=== PATIENT | female | born 1985 ===

== ENCOUNTER 2020-07-10 05:55 | Inpatient (IN) | payer OTHER ==
[2020-07-10] MEDS ORDERED: LIDOCAINE HCL 1% PRESERVATIVE FREE - 30ML VIAL ONE (06:22)
[2020-07-10] MEDS ORDERED: DEXTROSE 5%-LACTATED RINGERS 1,000 ML IV SCH (06:45)
[2020-07-10] MEDS ORDERED: BISACODYL 10 MG SUPP.RECT RC PRN (06:46)
[2020-07-10] MEDS ORDERED: METHYLERGONOVINE MALEATE 0.2 MG/1 ML AMP IM PRN (06:46)
[2020-07-10] MEDS ORDERED: BENZOCAINE 28 GM HEMORRHOIDAL OINTMENT TP PRN (06:46)
[2020-07-10] MEDS ORDERED: WITCH HAZEL 50% (TUCKS) 40 PAD/JAR PAD TP PRN (06:46)
[2020-07-10] MEDS ORDERED: BENZOCAINE 20% 57 GM BOTTLE TP PRN (06:46)
[2020-07-10] MEDS ORDERED: oxyCODONE HCL 5 MG TABLET PO PRN (06:46)
[2020-07-10] MEDS ORDERED: OXYTOCIN 20 UNITS in 0.9% NS 20 UNIT/1,000 ML INFUS.BAG IV SCH (07:00)
[2020-07-10 08:03] LABS: BASO % 0.3 % (0-2.0); EOS % 0.5 % (0-4.5); HEMATOCRIT 38.1 % (32.4-45.2); HEMOGLOBIN 13.2 GM/dL (10.7-15.3); LYMPH % 27.5 % (8-40); MCH 31.1 pg (25.7-33.7); MCHC 34.7 g/dl (32.0-36.0); MEAN CELL VOLUME 89.4 fl (80-96); MEAN PLT VOLUME 11.3 fl (7.5-11.1); MONO % 6.3 % (3.8-10.2); NEUT % 65.4 % (42.8-82.8); PLATELET COUNT 130 K/MM3 (134-434); RBC 4.26 M/mm3 (3.60-5.2); RDW 13.3 % (11.6-15.6); WHITE BLOOD COUNT 8.8 K/mm3 (4.0-10.0)
[2020-07-10 08:05] VITALS: BMI 24.8
[2020-07-10 08:10] LABS: INR 0.88 (0.83-1.09); PROTHROMBIN TIME (PATIENT) 10.9 SEC (9.7-13.0)
[2020-07-10 08:12] LABS: ACTIVATED PTT 28.2 SECONDS (25.2-36.5)
[2020-07-10 08:21] LABS: POTASSIUM 3.5 mmol/L (3.5-5.1)
[2020-07-10 08:22] LABS: CALCIUM 8.7 mg/dL (8.5-10.1)
[2020-07-10 08:23] LABS: BLOOD UREA NITROGEN 7.8 mg/dL (7-18)
[2020-07-10 08:26] LABS: CREATININE 0.6 mg/dL (0.55-1.3)
[2020-07-10] MEDS ORDERED: OXYTOCIN 20 UNITS in 0.9% NS 20 UNIT/1,000 ML INFUS.BAG IV ONE (08:36)
[2020-07-10] MEDS ORDERED: IBUPROFEN 600 MG TABLET (FP) PO ONE (08:36)
[2020-07-10] MEDS: IBUPROFEN 600 MG TABLET (FP) PO PRN ×2 (08:45→14:59)
[2020-07-10] MEDS: PRENATAL VITAMINS W/ FOLIC ACID TABLET (FP) PO SCH (10:06)
[2020-07-10] MEDS: ACETAMINOPHEN 325 MG TABLET (FP) PO PRN (15:00)
[2020-07-11] MEDS: IBUPROFEN 600 MG TABLET (FP) PO PRN ×3 (06:19→22:14)
[2020-07-11] MEDS: ACETAMINOPHEN 325 MG TABLET (FP) PO PRN ×3 (06:19→22:14)
[2020-07-11 09:31] LABS: BASO % 0.2 % (0-2.0); EOS % 0.6 % (0-4.5); HEMATOCRIT 29.4 % (32.4-45.2); HEMOGLOBIN 10.4 GM/dL (10.7-15.3); LYMPH % 21.6 % (8-40); MCH 31.9 pg (25.7-33.7); MCHC 35.5 g/dl (32.0-36.0); MEAN CELL VOLUME 89.9 fl (80-96); MEAN PLT VOLUME 10.5 fl (7.5-11.1); MONO % 6.1 % (3.8-10.2); NEUT % 71.5 % (42.8-82.8); PLATELET COUNT 114 K/MM3 (134-434); RBC 3.27 M/mm3 (3.60-5.2); RDW 13.2 % (11.6-15.6); WHITE BLOOD COUNT 10.1 K/mm3 (4.0-10.0)
[2020-07-11] MEDS: PRENATAL VITAMINS W/ FOLIC ACID TABLET (FP) PO SCH (09:34)
[2020-07-11] MEDS ORDERED: SENNOSIDES/DOCUSATE COMBO (SENNA PLUS) TABLET (UD) PO PRN (22:00)
[2020-07-12] MEDS: PRENATAL VITAMINS W/ FOLIC ACID TABLET (FP) PO SCH ×2 (08:38→12:15)
[2020-07-12] MEDS: ACETAMINOPHEN 325 MG TABLET (FP) PO PRN (08:38)
[2020-07-12] MEDS: IBUPROFEN 600 MG TABLET (FP) PO PRN (08:39)
[2020-07-12 12:21] VITALS: BP 127/81; PULSE 88; TEMP 98.1
== END 2020-07-12 10:10 | disposition home or self-care (01) | DRG 560 ==
LOC: EDBD 05:55 → JLDR 05:55 → J3W 09:18
PROVIDERS: ADMIT Obstetrics & Gynecology; ATTEND Obstetrics & Gynecology
PROC: 10E0XZZ Delivery of Products of Conception, External Approach (ICD-10-PCS; principal; 2020-07-10)
PROC: 0W8NXZZ Division of Female Perineum, External Approach (ICD-10-PCS; 2020-07-10)
DX: O66.0 Obstructed labor due to shoulder dystocia (principal); O77.0 Labor and delivery complicated by meconium in amniotic fluid; Z3A.40 40 weeks gestation of pregnancy; Z37.0 Single live birth
CPT/HCPCS: 36415; 59409; 80048; 85025; 85610; 85730; 86780; 86850; 86900; 86901; C9803; U0003

== ENCOUNTER 2022-04-02 13:45 | Inpatient (IN) | payer OTHER ==
[2022-04-02] MEDS ORDERED: AMPICILLIN SODIUM 2 GM VIAL ONE (14:21)
[2022-04-02] MEDS ORDERED: AMPICILLIN - 2 GM in SODIUM CHLORIDE 100 ML IVPB ONE (14:30)
[2022-04-02] MEDS ORDERED: ELECTROLYTE-148 SOLN 1,000 ML IV SCH (14:30)
[2022-04-02 14:48] LABS: BASO % 0.7 % (0-2.0); EOS % 0.3 % (0-4.5); HEMOGLOBIN 12.1 GM/dL (10.7-15.3); LYMPH % 21.7 % (8-40); MCH 29.9 pg (25.7-33.7); MCHC 33.6 g/dl (32.0-36.0); MEAN CELL VOLUME 88.8 fl (80-96); MEAN PLT VOLUME 10.3 fl (7.5-11.1); MONO % 5.5 % (3.8-10.2); NEUT % 71.8 % (42.8-82.8); PLATELET COUNT 162 10^3/uL (134-434); RBC 4.05 M/mm3 (3.60-5.2); RDW 13.3 % (11.6-15.6); WHITE BLOOD COUNT 7.2 K/mm3 (4.0-10.0)
[2022-04-02 14:56] LABS: INR 0.94 (0.83-1.09); PROTHROMBIN TIME (PATIENT) 10.8 SEC (9.7-13.0)
[2022-04-02 14:59] LABS: ACTIVATED PTT 27.3 SECONDS (25.2-36.5)
[2022-04-02 15:20] LABS: BLOOD UREA NITROGEN 6.6 mg/dL (7-18)
[2022-04-02 15:23] LABS: CREATININE 0.6 mg/dL (0.55-1.3)
[2022-04-02 16:23] VITALS: BMI 25.2
[2022-04-02 16:57] LABS: HIV INTERPRETATION NEGATIVE (NEGATIVE)
[2022-04-02] MEDS ORDERED: OXYTOCIN 30 UNITS in 0.9% NS 30 UNIT/500 ML INFUS.BAG IVPB SCH (17:40)
[2022-04-02] MEDS ORDERED: OXYTOCIN 30 UNITS in 0.9% NS 30 UNIT/500 ML INFUS.BAG IVPB ONE (17:41)
[2022-04-02] MEDS ORDERED: AMPICILLIN SODIUM 1 GM VIAL ONE ×2 (18:04→22:17)
[2022-04-02] MEDS: AMPICILLIN - 1 GM in SODIUM CHLORIDE 100 ML IVPB SCH ×2 (18:14→22:20)
[2022-04-02] MEDS ORDERED: FENTANYL/BUPIVACAINE/NS/PF - PCEA - 50 ML DISP.SYRIN EP ONE (19:48)
[2022-04-02] MEDS: ELECTROLYTE-148 SOLN 1,000 ML IV SCH (21:00)
[2022-04-02] MEDS ORDERED: NALOXONE HCL 0.4 MG/ML VIAL IVPUSH PRN (21:46)
[2022-04-02] MEDS ORDERED: FENTANYL/BUPIVACAINE/NS/PF - PCEA - 50 ML DISP.SYRIN EP SCH (22:00)
[2022-04-02] MEDS ORDERED: OXYTOCIN 20 UNITS in 0.9% NS 20 UNIT/1,000 ML INFUS.BAG IV ONE (22:16)
[2022-04-02] MEDS ORDERED: LIDOCAINE HCL 1% PRESERVATIVE FREE - 30ML VIAL ONE (22:16)
[2022-04-02] MEDS ORDERED: BENZOCAINE 28 GM HEMORRHOIDAL OINTMENT TP PRN (23:23)
[2022-04-02] MEDS ORDERED: METHYLERGONOVINE MALEATE 0.2 MG/1 ML AMP IM PRN (23:23)
[2022-04-02] MEDS ORDERED: BISACODYL 10 MG SUPP.RECT RC PRN (23:23)
[2022-04-02] MEDS ORDERED: BENZOCAINE 20% 57 GM BOTTLE TP PRN (23:23)
[2022-04-02] MEDS ORDERED: WITCH HAZEL 50% (TUCKS) 40 PAD/JAR PAD TP PRN (23:23)
[2022-04-02] MEDS ORDERED: ACETAMINOPHEN 325 MG TABLET (FP) PO PRN (23:23)
[2022-04-02] MEDS ORDERED: OXYTOCIN 20 UNITS in 0.9% NS 20 UNIT/1,000 ML INFUS.BAG IV SCH (23:30)
[2022-04-03] MEDS ORDERED: oxyCODONE HCL 5 MG TABLET ONE (00:17)
[2022-04-03] MEDS: oxyCODONE HCL 5 MG TABLET PO PRN ×2 (00:20→07:55)
[2022-04-03] MEDS: AMPICILLIN - 1 GM in SODIUM CHLORIDE 100 ML IVPB SCH (03:42)
[2022-04-03 09:20] LABS: BASO % 0.2 % (0-2.0); EOS % 0.3 % (0-4.5); HEMOGLOBIN 11.3 GM/dL (10.7-15.3); LYMPH % 15.5 % (8-40); MCH 30.1 pg (25.7-33.7); MCHC 34.2 g/dl (32.0-36.0); MEAN CELL VOLUME 88.1 fl (80-96); MEAN PLT VOLUME 10.3 fl (7.5-11.1); MONO % 6.5 % (3.8-10.2); NEUT % 77.5 % (42.8-82.8); PLATELET COUNT 141 10^3/uL (134-434); RBC 3.75 M/mm3 (3.60-5.2); RDW 13.5 % (11.6-15.6); WHITE BLOOD COUNT 11.8 K/mm3 (4.0-10.0)
[2022-04-03] MEDS: PRENATAL VITAMINS W/ FOLIC ACID TABLET (FP) PO SCH (09:33)
[2022-04-03 11:13] VITALS: RESP 18
[2022-04-03] MEDS: IBUPROFEN 600 MG TABLET (FP) PO PRN (20:07)
[2022-04-03] MEDS ORDERED: SENNOSIDES/DOCUSATE COMBO (SENNA PLUS) TABLET (UD) PO PRN (22:00)
[2022-04-03] MEDS: ELECTROLYTE-148 SOLN 1,000 ML IV SCH (22:59)
[2022-04-04] MEDS: IBUPROFEN 600 MG TABLET (FP) PO PRN ×2 (05:27→09:44)
[2022-04-04] MEDS: PRENATAL VITAMINS W/ FOLIC ACID TABLET (FP) PO SCH (09:44)
[2022-04-04 09:49] VITALS: BP 113/65; PULSE 86; TEMP 98.5
== END 2022-04-04 14:30 | disposition home or self-care (01) | DRG 560 ==
LOC: JLDR 13:45 → J3W 04-03 00:51
PROVIDERS: ADMIT Obstetrics & Gynecology; ATTEND Obstetrics & Gynecology
PROC: 10E0XZZ Delivery of Products of Conception, External Approach (ICD-10-PCS; principal; 2022-04-02)
DX: O42.02 Full-term premature rupture of membranes, onset of labor within 24 hours of rupture (principal); O70.0 First degree perineal laceration during delivery; O69.1XX0 Labor and delivery complicated by cord around neck, with compression, not applicable or unspecified; Z3A.39 39 weeks gestation of pregnancy; Z37.0 Single live birth
CPT/HCPCS: 36415; 59409; 80048; 85025; 85610; 85730; 86780; 86850; 86900; 86901; 87389; C9803-CS; U0003; U0005